=== PATIENT | female | born 1955 | race American Indian/Alaskan Native ===

== ENCOUNTER 2018-08-05 09:16 | Emergency (ER) | payer MEDICARE, OTHER ==
[2018-08-05] MEDS ORDERED: ASPIRIN PO ONE (09:45)
[2018-08-05] MEDS ORDERED: NACL 0.9% 1000 ML 1,000 ML IV ONE ×2 (10:14)
[2018-08-05] MEDS ORDERED: TYLENOL PR ONE (10:20)
[2018-08-05 10:29] LABS: Basophils # (Auto) 0.1 K/mm3 (0.0-0.1); Basophils % (Auto) 0.7 % (0.0-1.8); Eosinophils # (Auto) 0.1 K/mm3 (0.0-0.4); Eosinophils % (Auto) 0.4 % (0.0-4.3); Hematocrit 31.1 % (30.3-42.9); Hemoglobin 9.8 gm/dl (10.1-14.3); Lymphocytes # (Auto) 3.4 K/mm3 (1.2-5.4); Lymphocytes % (Auto) 19.5 % (13.4-35.0); Mean Corpuscular HGB Conc 32 % (30-34); Mean Corpuscular Volume 85 fl (79-97); Monocytes # (Auto) 1.5 K/mm3 (0.0-0.8); Monocytes % (Auto) 8.7 % (0.0-7.3); Platelet Count 420 K/mm3 (140-440); Red Blood Count 3.67 M/mm3 (3.65-5.03); Red Cell Distribution Width 19.5 % (13.2-15.2)
--- NOTE | 2018-08-05 10:33 | Emergency Department Report ---
HPI - General Chief Complaint: Dyspnea/Respdistress Time Seen by Provider: 08/05/18 10:05 - HPI HPI: Room 1 The pt is a 63 y/o F p/w a cc of fever. The patient was sent from [facility] this morning after family discontinued hospice. Family states the patient was sent to Hospice 6 days ago after a prolonged hospital admmission for ststus epilepticus requiring trach per family. Family states the patient was taken off of the vent and sent to hospice. Family states the pt seems more alert and tracks with her eyes now since being in hospice. Family is requesting a "second opinion." ED Past Medical Hx - Past Medical History Previous Medical History?: Yes Hx Seizures: Yes Hx Dementia: Yes - Family History Family history: no significant - Social History Smoking Status: Unknown if ever smoked Substance Use Type: None ED Review of Systems ROS: Stated complaint: TACHYCARDIA Other details as noted in HPI Comment: Unobtainable due to pts medical conditions Constitutional: fever Respiratory: no symptoms reported Physical Exam - Physical Exam Vital Signs: Vital Signs 08/05/18 09:29 Pulse Rate 165 H Blood Pressure 113/62 Physical Exam: GEN: WD female lying on stretcher not appearing to be in acute distress HEENT: atraumatic Neck: Trach in place CV: tachycardia Lungs: BS equal bilat Abd: S/NT/ND Skin: no diaphoresis Neuro: Nonverbal (baseline per family) does not track ED Course Vital Signs 08/05/18 09:29 Pulse Rate 165 H Blood Pressure 113/62 ED Medical Decision Making - Lab Data Result diagrams: 08/05/18 09:59 08/05/18 09:59 Laboratory Tests 08/05/18 08/05/18 08/05/18 09:59 09:59 09:59 WBC 17.3 H RBC 3.67 Hgb 9.8 L Hct 31.1 MCV 85 MCH 27 L MCHC 32 RDW 19.5 H Plt Count 420 Lymph % (Auto) 19.5 [place] % (Auto) 8.7 H Eos % (Auto) 0.4 Baso % (Auto) 0.7 Lymph # 3.4 [place] # 1.5 H Eos # 0.1 Baso # 0.1 Seg Neutrophils % 70.7 H Seg Neutrophils # 12.3 H Sodium 157 H Potassium 4.1 Chloride 119.5 H Carbon Dioxide 22 Anion Gap 20 BUN 12 Creatinine 0.4 L Estimated GFR > 60 BUN/Creatinine Ratio 30 Glucose 104 H Lactic Acid Calcium 9.0 Total Bilirubin 0.80 Direct Bilirubin 0.7 H Indirect Bilirubin 0.1 AST 66 H ALT 38 Alkaline Phosphatase 548 H Troponin T 0.055 H Total Protein 6.4 Albumin 2.4 L Albumin/Globulin Ratio 0.6 Triglycerides 284 H Cholesterol 196 LDL Cholesterol Direct 100 HDL Cholesterol 22 L Cholesterol/HDL Ratio 8.90 TSH Free T4 Urine Color Urine Turbidity Urine pH Ur Specific [place] Urine Protein Urine Glucose (UA) Urine Ketones Urine Blood Urine Nitrite Urine Bilirubin Urine Urobilinogen Ur Leukocyte Esterase Urine WBC (Auto) Urine RBC (Auto) U Epithel Cells (Auto) Urine Bacteria (Auto) Urine Mucus Urine Yeast (Budding) 08/05/18 08/05/18 08/05/18 10:46 10:46 10:53 WBC RBC Hgb Hct MCV MCH MCHC RDW Plt Count Lymph % (Auto) [place] % (Auto) Eos % (Auto) Baso % (Auto) Lymph # [place] # Eos # Baso # Seg Neutrophils % Seg Neutrophils # Sodium Potassium Chloride Carbon Dioxide Anion Gap BUN Creatinine Estimated GFR BUN/Creatinine Ratio Glucose Lactic Acid 2.20 H* Calcium Total Bilirubin Direct Bilirubin Indirect Bilirubin AST ALT Alkaline Phosphatase Troponin T Total Protein Albumin Albumin/Globulin Ratio Triglycerides Cholesterol LDL Cholesterol Direct HDL Cholesterol Cholesterol/HDL Ratio TSH 5.180 H Free T4 0.94 Urine Color Yellow Urine Turbidity Slightly-cloudy Urine pH 5.0 Ur Specific [place] 1.029 Urine Protein 100 mg/dl Urine Glucose (UA) Neg Urine Ketones 20 Urine Blood Sm Urine Nitrite Neg Urine Bilirubin Neg Urine Urobilinogen 4.0 Ur Leukocyte Esterase Mod Urine WBC (Auto) 54.0 H Urine RBC (Auto) 51.0 U Epithel Cells (Auto) < 1.0 Urine Bacteria (Auto) 1+ Urine Mucus 2+ Urine Yeast (Budding) 3+ - EKG Data -: EKG Interpreted by Me EKG shows normal: sinus rhythm Rate: tachycardia (167 bpm) - EKG Data When compared to previous EKG there are: previous EKG unavailable - Radiology Data Radiology results: report reviewed (CXR), image reviewed (CXR) interpreted by me: CXR- no definite focal infiltrate. No PTX [facility] [address] [place] [address] XRay Report Signed Patient: JOSEPH BURNETTE MR#: [id number] : 1955 Acct:[id number] Age/Sex: 63 / F ADM Date: 08/05/18 Loc: ED Attending Dr: Ordering Physician: KARY JAMES MD Date of Service: 08/05/18 Procedure(s): XR chest 1V ap Accession Number(s): [id number] cc: KARY JAMES MD Fluoro Time In Minutes: AP CHEST: HISTORY: Fever No comparison. A tracheostomy is in position. Heart size appears grossly normal. The left hemidiaphragm is elevated by 2 rib levels with respect to the right hemidiaphragm. There is mild compressive atelectasis at the left lung base. The remainder of the lungs are generally clear. No convincing pneumonia, pleural fluid or pneumothorax. The bony structures are demineralized. IMPRESSION: Elevated left hemidiaphragm. Mild left basilar atelectasis. No obvious infiltrate. Transcribed By: TTR Dictated By: THALIA FERRARA JR, MD Electronically Authenticated By: THALIA FERRARA JR, MD Signed Date/Time: 08/05/18 1050 DD/ 1049 TD/TT: 08/05/18 1050 - Differential Diagnosis UTI, Anoxic brain injury, Pneumonia Critical care attestation.: If time is entered above; I have spent that time in minutes in the direct care of this critically ill patient, excluding procedure time. ED Disposition Clinical Impression: Fever, Leukocytosis, Hypernatremia, UTI (urinary tract infection), Sepsis, Dehydration Disposition: OP ADMIT IP TO THIS HOSP Is pt being admited?: Yes Does the pt Need Aspirin: Yes Condition: Serious Referrals: DOROTEO GILLETTE [Other] - 3-5 Days Time of Disposition: 11:49 (HOSPITALIST PAGED (Dr Staples))
[2018-08-05 10:43] LABS: BUN/Creatinine Ratio 30; Blood Urea Nitrogen 12 mg/dL (7-17); Hemolysis Index 9
--- NOTE | 2018-08-05 10:52 | XRay Report ---
AP CHEST: HISTORY: Fever No comparison. A tracheostomy is in position. Heart size appears grossly normal. The left hemidiaphragm is elevated by 2 rib levels with respect to the right hemidiaphragm. There is mild compressive atelectasis at the left lung base. The remainder of the lungs are generally clear. No convincing pneumonia, pleural fluid or pneumothorax. The bony structures are demineralized. IMPRESSION: Elevated left hemidiaphragm. Mild left basilar atelectasis. No obvious infiltrate.
[2018-08-05 11:05] LABS: Albumin 2.4 g/dL (3.9-5); Bilirubin,Direct 0.7 mg/dL (0-0.2)
[2018-08-05 11:21] LABS: HDL Cholesterol 22 mg/dL (40-59); LDL Cholesterol,Direct 100 mg/dL (50-130)
[2018-08-05 11:24] LABS: Bacteria,Urine 1+ /HPF (Negative); Bilirubin,Urine NEG (Negative); Blood,Urine SM (Negative); Mucus,Urine 2+ /HPF
[2018-08-05 11:26] LABS: Color,Urine Yellow (Yellow)
[2018-08-05 11:32] LABS: Free T4 (Free Thyroxine) 0.94 ng/dL (0.76-1.46)
--- NOTE | 2018-08-05 11:53 | History and Physical Report ---
History of Present Illness Chief complaint: unresponsive History of present illness: 63 YO Female with Dementia, Seizure disorder, Debility, Respiratory Failure, Sacral Decubitus Ulcers, Encephalopathy presents to ED for evaluation. Pt sent from [facility] this morning as per family request. Pt family revoked hospice care and request "second opinion. Pt is stuporous/comatose with signs of Anoxic brain Injury and is unable to provide history. Pt history taken from family. Pt seen and evaluated in ED and foud to have Severe Sepsis, UTI, Encephalopathy, and Respiratory Failure. Pt found to have poor prognosis. Pt admitted to ICU for aggressive therapy. Family meeding held in ED. Pt family informed of poor prognosis. After prolonged discussion with family, and family deliberation-the family declined admission to ICU and elects to make patient DNR, and return patient to Hospice care and initiated Comfort care measures. Past History Past Medical History: seizures, other (Dementia, Respiratory Failure, Debility, Encephalopathy) Past Surgical History: Other (Trach/Peg) Social history: . denies: smoking, alcohol abuse, prescription drug abuse Family history: no significant family history (reviewed) Medications and Allergies Allergies Allergy/AdvReac Type Severity Reaction Status Date / Time No Known Allergies Allergy Verified 08/05/18 10:05 Home Medications Medication Instructions Recorded Confirmed Last Taken Type Acetaminophen [Tylenol] 1 - 2 tab PO Q4-6H PRN 08/05/18 08/05/18 Unknown History Acetaminophen [Tylenol] 1 - 2 tab TN Q4-6H PRN 08/05/18 08/05/18 08/05/18 H istory Atropine [Atropine INJ] 0.4 mg SUB-Q Q4-6H 08/05/18 08/05/18 08/05/18 History Bisacodyl [Dulcolax] 1 - 2 tab PO DAILY PRN 08/05/18 08/05/18 Unknown History LORazepam [Ativan INJ] 1 - 2 mg IM Q2H PRN 08/05/18 08/05/18 08/05/18 History LORazepam [Ativan] 0.5 mg PO Q2HR PRN 08/05/18 08/05/18 Unknown History LORazepam [Ativan] 1 mg PO Q2H PRN 08/05/18 08/05/18 08/05/18 History LORazepam [Ativan] 2 mg PO Q2H PRN 08/05/18 08/05/18 08/03/18 History Morphine Concentrate [MORPHINE 5 - 30 mg PO Q1HR PRN 08/05/18 08/05/18 08/03/18 History Conc 20 MG/ML ORAL LIQ] Morphine Concentrate [MORPHINE 5 - 30 mg PO Q2H PRN 08/05/18 08/05/18 08/05/18 History Conc 20 MG/ML ORAL LIQ] diphenhydrAMINE [Benadryl CAP] 25 - 50 mg PO Q6H PRN 08/05/18 08/05/18 Unknown History Active Meds: Active Medications Ceftriaxone Sodium (Rocephin/Ns 1 Gm/50 Ml) 1 gm in 50 mls @ 100 mls/hr IV Q24HR [facility]; Protocol Stop: 08/07/18 10:29 Review of Systems ROS unobtainable: due to endotracheal tube Exam - Constitutional Vitals: Temp Pulse Resp BP Pulse Ox 154 H 35 H 113/42 83 L 08/05/18 10:45 08/05/18 10:45 08/05/18 10:45 08/05/18 10:45 General appearance: Present: severe distress - EENT Eyes: Present: miosis - Respiratory Respiratory effort: labored Respiratory: bilateral: diminished, rhonchi - Cardiovascular Rhythm: other (tachycardia) Heart Sounds: Present: S1 & S2. Absent: rub, click - Extremities Extremities: pulses symmetrical, No edema Peripheral Pulses: abnormal (capillary refill: greater than 3.5 seconds) - Abdominal Female genitourinary: Present: normal - Rectal Rectal Exam: normal exam-external/orifice - Integumentary Integumentary: Present: clear, dry, clammy, decreased turgor - Musculoskeletal Musculoskeletal: generalized weakness - Psychiatric Psychiatric: no appropriate mood/affect, no intact judgment & insight, no memory intact - Neurologic Neurologic: no CNII-XII intact, focal deficits, no moves all extremities, no gait normal Results - Labs CBC & Chem 7: 08/05/18 09:59 08/05/18 09:59 Labs: Abnormal lab results 08/05/18 08/05/18 08/05/18 Range/Units 09:59 09:59 09:59 WBC 17.3 H (4.5-11.0) K/mm3 Hgb 9.8 L (10.1-14.3) gm/dl MCH 27 L (28-32) pg RDW 19.5 H (13.2-15.2) % [place] % (Auto) 8.7 H (0.0-7.3) % [place] # 1.5 H (0.0-0.8) K/mm3 Seg Neutrophils % 70.7 H (40.0-70.0) % Seg Neutrophils # 12.3 H (1.8-7.7) K/mm3 Sodium 157 H (137-145) mmol/L Chloride 119.5 H (98-107) mmol/L Creatinine 0.4 L (0.7-1.2) mg/dL Glucose 104 H (65-100) mg/dL Lactic Acid (0.7-2.0) mmol/L Direct Bilirubin 0.7 H (0-0.2) mg/dL AST 66 H (5-40) units/L Alkaline Phosphatase 548 H (35-129) units/L Troponin T 0.055 H (0.00-0.029) ng/mL Albumin 2.4 L (3.9-5) g/dL Triglycerides 284 H (2-149) mg/dL HDL Cholesterol 22 L (40-59) mg/dL TSH (0.270-4.200) mlU/mL Urine WBC (Auto) (0.0-6.0) /HPF 08/05/18 08/05/18 08/05/18 Range/Units 10:46 10:46 10:53 WBC (4.5-11.0) K/mm3 Hgb (10.1-14.3) gm/dl MCH (28-32) pg RDW (13.2-15.2) % [place] % (Auto) (0.0-7.3) % [place] # (0.0-0.8) K/mm3 Seg Neutrophils % (40.0-70.0) % Seg Neutrophils # (1.8-7.7) K/mm3 Sodium (137-145) mmol/L Chloride (98-107) mmol/L Creatinine (0.7-1.2) mg/dL Glucose (65-100) mg/dL Lactic Acid 2.20 H* (0.7-2.0) mmol/L Direct Bilirubin (0-0.2) mg/dL AST (5-40) units/L Alkaline Phosphatase (35-129) units/L Troponin T (0.00-0.029) ng/mL Albumin (3.9-5) g/dL Triglycerides (2-149) mg/dL HDL Cholesterol (40-59) mg/dL TSH 5.180 H (0.270-4.200) mlU/mL Urine WBC (Auto) 54.0 H (0.0-6.0) /HPF Assessment and Plan - Patient Problems (1) Sepsis Current Visit: Yes Status: Acute Qualifiers: Sepsis type: sepsis due to unspecified organism Qualified Code(s): A41.9 - Sepsis, unspecified organism Plan to address problem: Admit to ICU, IVF resuscitation, monitor uop q shift, blood cultures, urinalysis, Chest X ray, supportive care. Additional 60 minutes dedicated to patient family conference. Pt family counseled regarding prognosis. Pt family subsequently elects to forgo admission to ICU and return to hospice care. The high probability of a clinically significant, sudden or life threatening deterioration of the [neuro, respiratory, renal] system(s) required my full and direct attention, intervention and personal management. The aggregate critical care time was [65] minutes. This time is in addition to time spent performing reported procedures but includes the following: [x] Data Review and interpretation [x] Patient assessment and monitoring of vital signs [x] Documentation [x] Medication orders and management (2) Encephalopathy Current Visit: Yes Status: Acute Plan to address problem: Supportive care, suspect Anoxic Brain injury. Pt family decides to forgo CT head, and further neurologic testing. (3) Respiratory failure Current Visit: Yes Status: Acute Qualifiers: Chronicity: acute on chronic Plan to address problem: Trach in place, supportive care. pain control. (4) UTI (urinary tract infection) Current Visit: Yes Status: Acute Qualifiers: Urinary tract infection type: acute cystitis Plan to address problem: IV antibiotic therapy, supportive care, urinalysis, (5) DVT prophylaxis Current Visit: Yes Status: Acute Plan to address problem: SCD to BLE while in bed.
[2018-08-05] MEDS ORDERED: ROCEPHIN/NS 1 GM/50 ML 1 GM/50 ML BAG IV SCH (12:00)
[2018-08-05 18:23] VITALS: BP 107/58
== END 2018-08-05 18:24 | disposition admitted as inpatient to this hospital (09) ==
LOC: ED 09:16
DX: E86.0 Dehydration (principal); N39.0 Urinary tract infection, site not specified; E87.0 Hyperosmolality and hypernatremia; D72.829 Elevated white blood cell count, unspecified; A41.9 Sepsis, unspecified organism; F03.90 Unspecified dementia, unspecified severity, without behavioral disturbance, psychotic disturbance, mood disturbance, and anxiety
CPT/HCPCS: 36415; 71045; 80048; 80061; 80076; 81001; 82140; 82962; 84439; 84443; 84484; 85025; 87040; 87086; 93005; 93010; 96360; 99285; J0696; J7030